=== PATIENT | female | born 1960 | race Caucasian/White ===

== ENCOUNTER 2022-10-23 05:17 | Emergency (ER) | payer OTHER, SELFPAY ==
[2022-10-23 05:20] VITALS: BP 180/76; PULSE 92; RESP 20; TEMP 36.8; O2SAT 100
[2022-10-23 05:25] VITALS: TEMP 36.3
[2022-10-23 06:57] VITALS: BP 155/93; PULSE 82; RESP 15; O2SAT 99
--- NOTE | 2022-10-23 07:22 | ED.EAR ---
HPI - Ear Problem General Chief complaint: Ear Stated complaint: ear pain Time Seen by Provider: 10/23/22 06:59 Source: patient and RN notes reviewed Mode of arrival: ambulatory Limitations: no limitations History of Present Illness HPI Narrative: This is a 62 year old female who presents for evaluation of left ear pain. Patient states last night her left ear started to feel full and then she developed throbbing ear pain. She applied heating pack to her left ear that helped her pain. She has not taken any medication for her. She also reports having sinus symptoms over the weekend. She denies fever, chills, nausea or vomiting. Related Data Allergies Allergy/AdvReac Type Severity Reaction Status Date / Time hydrocodone Allergy Nausea and Verified 10/23/22 05:24 Vomiting Review of Systems Review of Systems: All systems reviewed & are unremarkable except as noted in HPI and below PMFSH Past Medical History Medical History (Updated 10/23/22 @ 07:26 by Adelaida Joe MD) Diabetes mellitus Hypertension Hypothyroid Surgical History Surgical History (Updated 10/23/22 @ 07:24 by Adelaida Joe MD) H/O tubal ligation Social History Social History (Updated 10/23/22 @ 07:24 by Adeladia Joe MD) Smoking status: Never smoker Exam Const: General: no acute distress and alert Nutritional Appearance: well nourished Orientation/consciousness: patient oriented x3 HENMT: Head: normal to inspection Ears: external ears normal and TM abnormal erythematous and with loss of landmarks Face and sinus: normal facial exam Mouth: Yes Normal oral and palatal mucosa present, Yes lip normal and Yes moist mucous membranes Throat: posterior oropharynx normal and uvula midline Eyes: EOM: EOMs intact bilaterally Neck: Neck: normal visual inspection Resp: Effort & Inspection: normal respiratory effort Auscultation: clear to auscultation bilaterally Cardio: Rate: regular rate Rhythm: regular rhythm Heart sounds: no murmurs Skin: General skin exam: normal color Rashes: no rashes Wounds: no wounds Neuro: General: patient oriented x3, moves all extremities and CN's II-XI intact bilaterally Extrem: General: normal to inspection Psych: Mental Status: mental status grossly normal Affect: normal affect Attitude: cooperative Course Reevaluation(s) Reevaluation #1: I discussed with patient that she will be treated with oral antibiotic to treat ear infection. She denies any other questions or concerns. Date: 10/23/22 Time: 07:25 Vital Signs Vital signs: Vital Signs Temperature 98.2 F 10/23/22 05:20 Pulse Rate 92 10/23/22 05:20 Respiratory Rate 20 10/23/22 05:20 Blood Pressure 180/76 H 10/23/22 05:20 Pulse Oximetry 100 10/23/22 05:20 Oxygen Delivery Room Air 10/23/22 05:20 Temperature 97.4 F L 10/23/22 05:25 Pulse Rate 82 10/23/22 06:57 Respiratory Rate 15 10/23/22 06:57 Blood Pressure 155/93 H 10/23/22 06:57 Pulse Oximetry 99 10/23/22 06:57 Oxygen Delivery Room Air 10/23/22 05:20 Medical Decision Making Vital Signs Vital Signs: Vital Signs Temperature 98.2 F 10/23/22 05:20 Pulse Rate 92 10/23/22 05:20 Respiratory Rate 20 10/23/22 05:20 Blood Pressure 180/76 H 10/23/22 05:20 Pulse Oximetry 100 10/23/22 05:20 Oxygen Delivery Room Air 10/23/22 05:20 Temperature 97.4 F L 10/23/22 05:25 Pulse Rate 82 10/23/22 06:57 Respiratory Rate 15 10/23/22 06:57 Blood Pressure 155/93 H 10/23/22 06:57 Pulse Oximetry 99 10/23/22 06:57 Oxygen Delivery Room Air 10/23/22 05:20 Discharge Plan Discharge Clinical Impression: Acute left otitis media Patient Disposition: Home, Self-Care Condition: Stable Instructions: Antibiotic Form, Ear Infection (ED) Prescriptions: New amoxicillin-pot clavulanate 875-125 mg tablet 1 tablet PO Q12H Qty: 20 0RF Follow-up/Referrals: PHYSICIAN NOT ON STAFF,NONSTAF
== END 2022-10-23 07:41 | disposition home or self-care (01) ==
PROVIDERS: Emergency Provider General Practice
DX: H66.92 Otitis media, unspecified, left ear (principal); E11.9 Type 2 diabetes mellitus without complications; I10 Essential (primary) hypertension; E03.9 Hypothyroidism, unspecified
CPT/HCPCS: 99283